=== PATIENT | male | born 1965 | race Caucasian/White ===

== ENCOUNTER 2016-11-02 07:02 | Emergency (ER) | payer OTHER ==
--- NOTE | 2016-11-02 07:06 | UCPHY ---
H & P Patient Type: New HPI/ROS: HPI CHIEF COMPLAINT: Cough, congestion, sinus congestion, x3 weeks HISTORY OF PRESENT ILLNESS: this patient very pleasant 51-year-old male denies any significant medical or surgical history presents to the urgent care with upper respiratory tract infection x3 weeks. Patient tells me that he has had somewhat of sore throat, bilateral ear pressure, runny nose, sinus congestion, cough nonproductive and no fever x3 weeks. Denies productive cough denies shortness of breath denies chest pain. His main complaint is upper respiratory sinus congestion. Denies pain. Denies diarrhea nausea vomiting. No sick contacts. Past Medical History: No significant medical history Past Surgical History: no significant surgical history Social History: [employer], denies drugs alcohol tobacco products, lives locally loose feel Family History: noncontributory ROS REVIEW OF SYSTEMS: A comprehensive 10 point review of systems is otherwise negative aside from elements mentioned in the history of present illness. Exam Constitutional triage nursing summary reviewed, vital signs reviewed, awake/ alert. Eyes normal conjunctivae and sclera, EOMI, PERRLA. HENT TMs have fluid behind both TMs, no erythema no bulge, posterior pharynx normal inspection, atraumatic, moist mucus membranes, no epistaxis, neck supple / no meningismus, no raccoon eyes. Respiratory clear to auscultation bilaterally, normal breath sounds, no respiratory distress, no wheezing. Cardiovascular rate normal, regular rhythm, no murmur, no edema, distal pulses normal. Gastrointestinal soft, non-tender, no rebound, no guarding, normal bowel sounds, no distension, no pulsatile mass. Genitourinary no CVA tenderness. Musculoskeletal no midline vertebral tenderness, full range of motion, no calf swelling, no tenderness of extremities, no meningismus, good pulses, neurovascularly intact. Skin pink, warm, & dry, no rash, skin atraumatic. Neurologic awake, alert and oriented x 3, AAOx3, moves all 4 extremities equally, motor intact, sensory intact, CN II-XII intact, normal cerebellar, normal vision, normal speech. Psychiatric normal mood/affect. Heme/Lymph/Immune no lymphadenopathy. Differential Diagnosis: includes but is not limited to in a particular order upper respiratory tract infection, sinusitis, atypical pneumonia, viral syndrome , viral bronchitis, doubt bacterial pneumonia Medical Decision Making: this patient appears well nontoxic is lungs are clear, oxygen levels appropriate. No fever here. Will place on Decadron, azithromycin , albuterol and guaifenesin he most likely has an upper respiratory tract infection no evidence of severe infection on exam. Prescription for Decadron, albuterol, azithromycin, guaifenesin patient understands return emergency room if develops any worsening symptoms questions or concerns. Source: Patient - Family History Significant Family History: No pertinent family hx Allergies/Adverse Reactions: No Known Allergies Allergy (Unverified 11/02/16 07:13) Home Medications: Medication Instructions Recorded AZITHROMYCIN [Z-PACK] 250 mg PO DAILY #6 tab 11/02/16 Albuterol [Proventil Inhaler HFA 1 - 2 puffs IH Q4H #1 mdi 11/02/16 (*)] Dexamethasone [Decadron 4 MG (*)] 4 mg PO DAILY #4 tab 11/02/16 Guaifenesin [Guaifenesin ER] 600 mg PO BID #14 tab.er.12h 11/02/16 Departure - Departure Disposition: Home, Routine, Self-Care Clinical Impression: Upper respiratory tract infection Qualifiers: URI type: unspecified viral URI Qualifier Code: (J06.9) Acute upper respiratory infection, unspecified Condition: Good Instructions: Sinusitis (ED), Upper Respiratory Infection (ED) Additional Instructions: 1. Stay well-hydrated drink lots of fluids. 2. Please take antibiotics as prescribed. 3. Return emergency room if develops any worsening symptoms questions or concerns. Referrals: Irene Starks MD [Primary Care Provider] - As per Instructions Prescriptions: Dexamethasone [Decadron 4 MG (*)] 4 mg PO DAILY #4 tab Guaifenesin [Guaifenesin ER] 600 mg PO BID #14 tab.er.12h Albuterol [Proventil Inhaler HFA (*)] 1 - 2 puffs IH Q4H #1 mdi AZITHROMYCIN [Z-PACK] 250 mg PO DAILY #6 tab - PQRS PQRS Measurement: n/a
[2016-11-02 07:33] VITALS: BP 126/73; PULSE 81; RESP 18; TEMP 97.5; O2SAT 96
== END 2016-11-02 07:39 | disposition home or self-care (01) ==
LOC: CED 07:02
DX: J06.9 Acute upper respiratory infection, unspecified (principal)
CPT/HCPCS: 99204-PO; G0463-PO